=== PATIENT | male | born 1950 | race Hispanic/Latino ===

== ENCOUNTER 2022-04-25 14:36 | Outpatient (CLI) | payer OTHER ==
[~2022-04-25 14:36] MED LIST: Magnevist 469MG/ML 20 ML VIAL ONE
== END 2022-04-25 14:37 | disposition home or self-care (01) ==
LOC: CSHMRI 14:36
PROVIDERS: ATTEND Urology
DX: R97.20 Elevated prostate specific antigen [PSA] (principal); N40.2 Nodular prostate without lower urinary tract symptoms
CPT/HCPCS: 72197; 82565